=== PATIENT | male | born 1980 | race Two or more races ===

== ENCOUNTER 2020-12-14 20:03 | Emergency (ER) | payer SELFPAY ==
[~2020-12-14] VITALS: Ht 177.8 cm; Wt 83.0 kg
[2020-12-14] MEDS ORDERED: LORAZEPAM 2MG/ML CPJ IM STA (21:09)
[2020-12-14] MEDS ORDERED: DIPHENHYDRAMINE 50MG/ML VIAL IM STA (21:09)
[2020-12-14] MEDS ORDERED: HALOPERIDOL LACTATE 5MG/ML VIAL IM STA (21:09)
[2020-12-14 23:03] LABS: BASOPHILS % 0.8 % (0.0-2.0); EOSINOPHILS % 0.3 % (0.0-5.0); HEMATOCRIT. 41.8 % (42.0-52.0); HEMOGLOBIN. 14.6 g/dL (14.0-18.0); LYMPHOCYTES % 29.5 % (20.0-50.0); MEAN CORPUSCULAR HEMOGLOBIN 32.5 pg (28.0-32.0); MEAN CORPUSCULAR VOLUME 92.9 fL (80.0-94.0); MEAN PLATELET VOLUME 8.8 fl (7.4-10.4); MONOCYTES % 9.7 % (2.0-8.0); NEUTROPHILS % 59.7 % (40.0-76.0); PLATELET 263 x1000/uL (130-400)
[2020-12-14 23:04] LABS: CLARITY URINE CLEAR (CLEAR); COLOR URINE DARK YELLOW (YELLOW); KETONES URINE 1+ (NEGATIVE); LEUKOCYTE ESTERASE URINE TRACE (NEGATIVE); NITRITE URINE NEGATIVE (NEGATIVE); OCCULT BLOOD URINE NEGATIVE (NEGATIVE); PH URINE 5.5 (4.5-8.0); PROTEIN URINE 1+ (NEGATIVE); SPECIFIC GRAVITY URINE 1.037 (1.005-1.030)
[2020-12-14 23:10] LABS: CHLORIDE 107 mEq/L (98-107)
[2020-12-14 23:14] LABS: ETHANOL BLOOD < 10 mg/dL
[2020-12-15 12:51] VITALS: BP 108/68
== END 2020-12-15 12:54 | disposition home or self-care (01) ==
LOC: EDBD 20:03 → ER 20:03
DX: F23 Brief psychotic disorder (principal); F91.8 Other conduct disorders; Z78.1 Physical restraint status; Z59.00 Homelessness unspecified
CPT/HCPCS: 36415; 70450; 80053; 80320; 81003; 84443; 85025; 96372; 99285; J1200; J1630; J2060; Z7610; G0480